=== PATIENT | male | born 1975 | race Caucasian/White ===

== ENCOUNTER 2016-03-18 09:13 | Emergency (ER) | payer MEDICAID ==
[2016-03-18] MEDS ORDERED: IBUPROFEN 800 MG TABLET PO ONE (10:40)
[2016-03-18] MEDS ORDERED: NORMAL SALINE 1000 ML 1,000 ML IV ONE ×2 (10:40→13:17)
--- NOTE | 2016-03-18 10:41 | ER Document Report ---
ED General - General Chief Complaint: General Weakness Stated Complaint: WEAKNESS Time seen by provider: 10:30 TRAVEL OUTSIDE OF THE [place] IN LAST 30 DAYS: No - HPI Notes: Patient is a 41-year-old male presents emergency department with "dehydration". Patient states that he has been walking for the past 12 hours. He was attempting to walk from [place] to [place]. He states that he was drinking fluids but "not the right kind of fluids". He states he was drinking energy drinks and coffee and not drinking water. He complains of generalized aches and pains as well as muscle cramps. He denies any focal chest pain, shortness of breath, vomiting, or diarrhea. He denies recent illness. He states that he is trying to get home so that he can take care of his girlfriend. He reports bilateral knee pain but states that this is chronic. He normally walks using a cane. Symptoms are worse with exertion and slightly better with rest. - Related Data Allergies/Adverse Reactions: haloperidol [From Haldol] Allergy (Unknown, Verified 03/18/16 10:02) Past Medical History - Social History Smoking Status: Current Every Day Smoker Cigarette use (# per day): Yes - 3-4 pack/ day Chew tobacco use (# tins/day): No Frequency of alcohol use: sober for 1 month Drug Abuse: None Family History: Reviewed & Not Pertinent Patient has suicidal ideation: No Patient has homicidal ideation: No Pulmonary Medical History: Reports: Hx Asthma, Hx COPD Renal/ Medical History: Denies: Hx Peritoneal Dialysis Psychiatric Medical History: Reports: Hx Depression Past Surgical History: Reports: Hx Tonsillectomy - Immunizations Hx Diphtheria, Pertussis, Tetanus Vaccination: Yes Review of Systems - Review of Systems Constitutional: Malaise, Weakness. denies: Fever, Recent illness EENT: denies: Nose congestion Cardiovascular: denies: Chest pain, Dyspnea Respiratory: denies: Cough, Short of breath Gastrointestinal: denies: Abdominal pain, Diarrhea, Vomiting Musculoskeletal: Muscle pain Skin: denies: Rash Neurological/Psychological: Weakness - generalized, nonfocal. denies: Sensory change, Headaches -: Yes All other systems reviewed and negative Physical Exam - Vital signs Vitals: Pulse Resp BP Pulse Ox 82 16 116/74 96 03/18/16 09:24 03/18/16 09:24 03/18/16 09:24 03/18/16 09:24 - Notes Notes: PHYSICAL EXAMINATION: GENERAL: Well-appearing, well-nourished and in no acute distress. HEAD: Atraumatic, normocephalic. EYES: sclera anicteric, conjunctiva are normal. ENT: Moist mucous membranes. NECK: supple, no meningismus, full range of motion BACK: No CVA tenderness to palpation. No midline tenderness to palpation. No step-offs or deformities. LUNGS: Breath sounds clear to auscultation bilaterally and equal. No wheezes rales or rhonchi. HEART: Regular rate and rhythm without murmurs ABDOMEN: Soft, nontender, normoactive bowel sounds. No guarding, no rebound. No masses appreciated. EXTREMITIES: Normal range of motion, no pitting or edema. No cyanosis. 2+ pulses. NEUROLOGICAL: Cranial nerves grossly intact. Normal speech, moves all extremities equally PSYCH: Normal mood, normal affect. SKIN: Warm, Dry, no rashes or lesions noted. Course - Re-evaluation Re-evalutation: 03/18/16 Patient presents for generalized aches and weakness. Patient's CK level is slightly elevated consistent with his report of walking for longer than 12 hours. He has no evidence of renal failure and is urinating without difficulty. He was given 2 L normal saline is been tolerating by mouth. He was counseled on importance of proper hydration and that drinking energy drinks and coffee are not adequate. Patient is nontoxic and stable for discharge. He was encouraged to follow-up with his primary care physician and given return precautions. He verbalized understanding of this plan and is in agreement. - Vital Signs Vital signs: Temp Pulse Resp BP Pulse Ox 97.7 F 58 L 16 112/57 L 98 03/18/16 13:54 03/18/16 13:54 03/18/16 13:54 03/18/16 13:54 03/18/16 13:54 - Laboratory Result Diagrams: 03/18/16 11:04 03/18/16 11:04 Laboratory results interpreted by me: 03/18/16 03/18/16 03/18/16 11:04 11:04 11:21 WBC 11.3 H RBC 4.17 L Hgb 13.1 L RDW 14.2 H Seg Neutrophils % 82.6 H Lymphocytes % 7.7 L Absolute Neutrophils 9.3 H Creatine Kinase 1241 H Urine Protein 30 H Urine Glucose (UA) 50 H Urine Ketones 20 H Urine Urobilinogen 2.0 H Discharge - Discharge Clinical Impression: Generalized weakness Condition: Stable Disposition: HOME, SELF-CARE Instructions: Family Physicians / Practices Additional Instructions: Weakness We did not find a definite cause for your weakness. This may require further medical tests. Weakness can be caused by infection, physical exhaustion , rapid weight loss, dehydration, or medicine side effects. Diseases of the muscles, heart, nerves, and blood vessels can make you weak. Sometimes the problem is simply depression or lack of exercise. You should get plenty of rest. Unless the doctor tells you otherwise, it's usually best to add short periods of regular mild exercise. Eat a nutritious diet with multiple small, low-sugar meals. If symptoms continue, additional medical evaluation will be necessary. Be sure to follow up as instructed. If you become very dizzy, nauseated, or feel like you're going to faint, lie down right away. Wait until the symptoms have passed before you get up again. Stand up slowly. Call the doctor or return if you develop chest pain, abdominal pain, severe headache, irregular heartbeat or very fast pulse, confusion, vision problems, fever, muscular pain, or any other new symptom. Make sure you are drinking plenty of water especially if you are going to be walking long distances. Follow-up with her primary care physician in the next 2 days. Referrals: CLARA GOOD NP [Primary Care Provider] - Follow up as needed
[2016-03-18 11:18] LABS: ABSOLUTE LYMPHOCYTES (AUTO) 0.9 10^3/uL (0.5-4.7); ABSOLUTE NEUT (AUTO) 9.3 10^3/uL (1.7-8.2); BASOPHILS % (AUTO) 0.4 % (0-2); EOSINOPHILS % (AUTO) 0.1 % (0-6); HEMOGLOBIN 13.1 g/dL (13.5-17.0); HGB HCT DIFFERENCE -0.7; LYMPHOCYTES % (AUTO) 7.7 % (13-45); MEAN CORPUSCULAR HEMOGLOBIN 31.4 pg (27.0-33.4); MEAN CORPUSCULAR HGB CONC 32.8 g/dL (32.0-36.0); MEAN CORPUSCULAR VOLUME 96 fl (80-97); MONOCYTES % (AUTO) 9.2 % (3-13); RED BLOOD COUNT 4.17 10^6/uL (4.35-5.55); RED CELL DISTRIBUTION WIDTH 14.2 % (11.5-14.0); SEGMENTED NEUTROPHILS % (AUTO) 82.6 % (42-78); WHITE BLOOD COUNT 11.3 10^3/uL (4.0-10.5)
[2016-03-18 11:40] LABS: ANION GAP 15 (5-19); BLOOD UREA NITROGEN 17 mg/dL (7-20); CALCIUM 9.8 mg/dL (8.4-10.2); CARBON DIOXIDE 26 mmol/L (22-30); CHLORIDE 101 mmol/L (98-107); CREATINE KINASE 1241 U/L (55-170); CREATININE RESULT 1.03 mg/dL (0.52-1.25); GLUCOSE 88 mg/dL (75-110); POTASSIUM 3.9 mmol/L (3.6-5.0)
[2016-03-18 13:58] VITALS: BP 112/57
[2016-03-18 14:00] LABS: APPEARANCE,URINE CLEAR; BILIRUBIN,URINE NEGATIVE (NEGATIVE); GLUCOSE, URINE 50 mg/dL (NEGATIVE); KETONES,URINE 20 mg/dL (NEGATIVE); LEUKOCYTE ESTERASE,URINE NEGATIVE (NEGATIVE); NITRITE,URINE NEGATIVE (NEGATIVE); PROTEIN,URINE 30 mg/dL (NEGATIVE); URINE SPECIFIC GRAVITY 1.032
== END 2016-03-18 13:58 | disposition home or self-care (01) ==
LOC: ER 09:13
DX: R53.1 Weakness (principal); R53.81 Other malaise; J44.9 Chronic obstructive pulmonary disease, unspecified; J45.909 Unspecified asthma, uncomplicated; F17.210 Nicotine dependence, cigarettes, uncomplicated
CPT/HCPCS: 99284; 96360; 36415; 82550; 85025; 80048; 81001; J3490; J7030